=== PATIENT | male | born 1985 | race Caucasian/White ===

== ENCOUNTER 2020-03-14 21:24 | Emergency (ER) | payer BC ==
[~2020-03-14] VITALS: Ht 185.4 cm; Wt 102.2 kg
--- NOTE | 2020-03-14 22:24 | NUR ---
SWOLLEN AREA ON FRONT OF NECK. PT REPORTS THAT HE WAS GIVEN ANTIBIOTICS RECENTLY, AND HAS ALMOST COMPLETED DOXYCYCLINE, AND HAS A GOOD BIT OF KEFLEX LEFT. PT DENIES DIFFICUTLY SWALLOWING OR BREATHING.
[2020-03-15] MEDS ORDERED: iohexol 300mg/ml 100ml inj. ONE (00:14)
[2020-03-15 01:19] LABS: BASOPHILS # (AUTO) 0.1 X10'3 (0-0.2); BASOPHILS % (AUTO) 0.8 % (0-1); EOSINOPHILS # (AUTO) 0.3 X10'3 (0-0.9); EOSINOPHILS % (AUTO) 3.6 % (0-6); HEMATOCRIT 37.4 % (42.0-52.0); HEMOGLOBIN 13.1 g/dl (14.0-17.9); LYMPHOCYTES % (AUTO) 42.6 % (21-51); MEAN CORPUSCULAR HEMOGLOBIN 31.1 PG (27.0-31.0); MEAN CORPUSCULAR VOLUME 88.9 FL (78-98); MEAN PLATELET VOLUME 6.8 FL (7.4-10.4); MONOCYTES # (AUTO) 0.8 X10'3 (0-0.9); MONOCYTES % (AUTO) 8.4 % (2-12); NEUTROPHILS # (AUTO) 4.2 X10'3 (1.8-7.7); NEUTROPHILS % (AUTO) 44.6 % (42-75); PLATELET COUNT 383 X10'3 (140-440); RED CELL DISTRIBUTION WIDTH 12.8 % (11.5-14.5); WHITE BLOOD COUNT 9.4 X10'3 (4.5-11.0)
[2020-03-15 01:35] LABS: ALBUMIN 3.3 G/DL (3.4-5.0); ANION GAP 7 (8-16); BLOOD UREA NITROGEN 20 MG/DL (7-18); BUN/CREATININE RATIO 19.2 (5.4-32.0); CALCIUM 9.2 MG/DL (8.5-10.1); CHLORIDE 101 MMOL/L (99-107); CREATININE 1.04 MG/DL (0.60-1.10); GLUCOSE 95 MG/DL (70-104); POTASSIUM 3.9 MMOL/L (3.5-5.1); SODIUM 138 MMOL/L (135-145); eGFR 82 ML/MIN
[2020-03-15] MEDS ORDERED: CefTRIAXone/D5W-Rocephin 1gm 50 ML IV ONE ×2 (03:05→03:15)
--- NOTE | 2020-03-15 03:07 | NUR ---
Mother- Viviane: [phone] Sister- Carla: [phone] to transfer patient to hospital with an ENT specialist. [facility] ([place], [place]) will accept if covid swab is negative. 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 Mom also states that pt is a smoker and might need a nicotine patch. Patient swabbed for covid 19 and swab sent to lab.
[2020-03-15] MEDS ORDERED: VANCOmycin 1250MG/NS 250ml Bag 250 ML IV SCH ×2 (04:00→08:00)
[2020-03-15] MEDS: methadone 10mg tablet PO ONE ×2 (04:40→08:36)
--- NOTE | 2020-03-15 06:12 | NUR ---
[facility] called stating that transportation would be here at 0830
[2020-03-15 08:44] VITALS: BP 115/76
== END 2020-03-15 08:46 | disposition short-term general hospital (02) ==
LOC: ER 21:26
DX: L02.11 Cutaneous abscess of neck (principal); Z20.828 Contact with and (suspected) exposure to other viral communicable diseases; L08.9 Local infection of the skin and subcutaneous tissue, unspecified; F15.90 Other stimulant use, unspecified, uncomplicated; F11.90 Opioid use, unspecified, uncomplicated
CPT/HCPCS: 36415; 70491; 80048; 85025; 87635; 96365; 96366; 96368; 99285; C9803; J0696; J3370; Q9967

== ENCOUNTER 2021-10-03 01:51 | Emergency (ER) | payer BC, MEDICAID ==
[~2021-10-03] VITALS: Ht 185.4 cm; Wt 95.3 kg
[2021-10-03 01:57] VITALS: BP 124/86
[2021-10-03] MEDS ORDERED: cephalexin 250mg capsule PO ONE (03:10)
[2021-10-03] MEDS ORDERED: CEPH-585 PO (03:28)
== END 2021-10-03 03:37 | disposition home or self-care (01) ==
LOC: ER 01:53
DX: K13.0 Diseases of lips (principal); F17.200 Nicotine dependence, unspecified, uncomplicated; F15.90 Other stimulant use, unspecified, uncomplicated; F11.90 Opioid use, unspecified, uncomplicated; Z79.2 Long term (current) use of antibiotics
CPT/HCPCS: 99283